=== PATIENT | male | born 1990 | race Hispanic/Latino ===

== ENCOUNTER 2018-07-10 17:26 | Emergency (ER) | payer BC, MEDICAID ==
[2018-07-10 17:33] VITALS: O2SAT 99
--- NOTE | 2018-07-10 18:11 | ED PDOC ---
HPI: Psych/Substance Abuse Time Seen by Provider: 07/10/18 17:30 Chief Complaint (Nursing): Psychiatric Evaluation Chief Complaint (Provider): Psychiatric Evaluation History Per: Patient, EMS History/Exam Limitations: no limitations Additional Complaint(s): 28 year old male presents to the emergency department via EMS for psychiatric evaluation. Patient reports that there was a verbal altercation between himself and his brother and then EMS were called. As per EMS, the patient was exhibiting paranoid behavior at the scene and was stating that women were in the room talking about him and tapping his phone lines. Patient is denying that this ever happened. He claims that he was the one who called EMS to break up the incident. Denies history of mental illness, denies HI/SI ideation. (?) hallucinations. Patient has no physical complaints at present. PMD: Dr. Mcnair Past Medical History Reviewed: Historical Data, Nursing Documentation, Vital Signs Vital Signs: Last Vital Signs Temp 98.1 F 07/10/18 17:31 Pulse 102 H 07/10/18 17:31 Resp 18 07/10/18 17:31 BP 167/43 H 07/10/18 17:31 Pulse Ox 99 07/10/18 17:31 - Medical History PMH: Asthma - Family History Family History: States: Unknown Family Hx - Social History Current smoker - smoking cessation education provided: Yes (1 pack per day) Alcohol: Social Drugs: Denies - Home Medications Home Medications: Ambulatory Orders Medication Instructions Recorded No Known Home Med [No Known Home 09/18/14 Med] - Allergies Allergies/Adverse Reactions: Allergies Allergy/AdvReac Type Severity Reaction Status Date / Time No Known Allergies Allergy Verified 07/10/18 17:30 Review of Systems Psych: Positive for: Other (? hallucinations). Negative for: Suicidal ideation Physical Exam - Reviewed Nursing Documentation Reviewed: Yes Vital Signs Reviewed: Yes - Physical Exam Comments: GENERAL APPEARANCE: Patient is awake, alert, oriented x 3, in no acute distress. Resting comfortably, cooperative. SKIN: Warm, dry; (-) cyanosis EYES: EOMI and painless (-) nystagmus. ENMT: Mucous membranes moist. Airway patent: (-) stridor. NECK: Supple, FROM HEART AND CARDIOVASCULAR: (-) irregularity CHEST AND RESPIRATORY: (-) rales, (-) rhonchi, (-) wheezes; breath sounds equal. Speaking in full sentences, respirations even and nonlabored. ABDOMEN: Soft, (-) distention, (-) tenderness, (-) guarding. NEURO AND PSYCH: Mental status as above. battery repairer: Grossly intact. Pupils equal and reactive; (-) facial asymmetry. Gait steady, speech clear. - ECG O2 Sat by Pulse Oximetry: 99 (RA) Pulse Ox Interpretation: Normal Medical Decision Making Medical Decision Makin Initial Impression 28 year old male presenting for psychiatric evaluation Initial Plan: * Crisis evaluation * Reevaluation 1834 Repeat BP: 141/78 Repeat HR: 91 Per crisis evaluation, patient to be discharged with the diagnosis of adjustment disorder per Dr Esteban. On re-evaluation, patient offers no complaints at this time. Patient remains AAOx3, in no acute distress. On exam, neck is supple, lungs CTA, cardiac RRR, neuro exam shows no focal findings. VSS, stable for discharge. Diagnostic results d/w the patient in great detail. Dx of adjustment disorder d/ w the patient. Based on history, exam and diagnostic results plan will be for discharge and outpatient follow up as directed by crisis. Advised to follow up with primary care physician in 1-2 days without fail. Return to the emergency room at any time for any new or worsening symptoms. Patient states he fully agrees with and understands discharge instructions. States that he agrees with the plan and disposition. Verbalized and repeated discharge instructions and plan. I have given the patient opportunity to ask any additional questions. Documented by Kathya Hill acting as a scribe for Audrey Ac PA-c. All medical record entries made by the Scribe were at my direction and personally dictated by me. I have reviewed the chart and agree that the record accurately reflects my personal performance of the history, physical exam, medical decision making, and the department course for this patient. I have also personally directed, reviewed, and agree with the discharge instructions and disposition. Disposition - Clinical Impression Clinical Impression: Adjustment disorder - Patient ED Disposition Is Patient to be Admitted: No Counseled Patient/Family Regarding: Diagnosis, Need For Followup - Disposition Referrals: [facility] [Outside] Jef Mcnair MD [Family Provider] - Disposition: Routine/Home Disposition Time: 18:38 Condition: FAIR Additional Instructions: The emergency medical care you received today was directed at your acute symptoms. If you were prescribed any medication, please fill it and take as directed. It may take several days for your symptoms to resolve. Return to the Emergency Department if your symptoms worsen, do not improve, or if you have any other problems. Please contact your doctor in 2 days for re-evaluation and follow up / or call one of the physicians/clinics you have been referred to that are listed on the Patient Visit Information form that is included in your discharge packet. Bring any paperwork you were given at discharge with you along with any medications you are taking to your follow up visit. Our treatment cannot replace ongoing medical care by a primary care provider (PCP) outside of the emergency department. Instructions: Adjustment Disorder Forms: [employer] (K[place]i) Print Language: JAPANESE - POA Present On Arrival: None
[2018-07-10 18:44] VITALS: BP 141/78; PULSE 91; RESP 15; TEMP 98.3
== END 2018-07-10 18:47 | disposition home or self-care (01) ==
LOC: H.ER 17:26
DX: F43.20 Adjustment disorder, unspecified (principal); Z00.8 Encounter for other general examination; F17.210 Nicotine dependence, cigarettes, uncomplicated; J45.909 Unspecified asthma, uncomplicated